=== PATIENT | female | born 1965 | race Caucasian/White ===

== ENCOUNTER 2022-07-03 12:17 | Day surgery (SDC) | payer OTHER ==
[~2022-07-03] VITALS: Ht 167.6 cm; Wt 63.3 kg
[2022-07-03] MEDS ORDERED: PRED20 PO (12:46)
[2022-07-03] MEDS ORDERED: TRAM50 PO (12:46)
--- NOTE | 2022-07-03 14:03 | NUR ---
07/03/22 1403 Tiffany Vanegas 1335 2 MG VERSED AND 50MCG FENTANYL IVP 1342 PATIENT TAKEN TO SDU AFTER PROCEDURE. ALERT, ORIENTED AND CONVERSIVE. NO S/S DISTRESS. VSS. REPORT GIVEN TO SDU RN.
== END 2022-07-03 14:12 | disposition home or self-care (01) ==
LOC: ORSCSDS 12:17
PROVIDERS: Anesthesiology
PROC: 3E0R33Z Introduction of Anti-inflammatory into Spinal Canal, Percutaneous Approach (ICD-10-PCS; principal; 2022-07-03 13:30)
DX: M50.123 Cervical disc disorder at C6-C7 level with radiculopathy (principal); Z79.899 Other long term (current) drug therapy
CPT/HCPCS: J1040; J2250; J3010

== ENCOUNTER 2022-08-06 08:20 | Emergency (ER) | payer OTHER ==
[~2022-08-06] VITALS: Ht 167.6 cm; Wt 63.5 kg
[~2022-08-06 08:20] MED LIST: CYCL10 PO; HYDR1TAB94 PO; LIDO700A20 TOP; PRED20 PO; TRAM50 PO
[2022-08-06] MEDS ORDERED: Percocet 5-3251 EACH PO (11:43)
== END 2022-08-06 11:30 | disposition home or self-care (01) ==
LOC: ER 08:20
DX: M54.2 Cervicalgia (principal); Z79.899 Other long term (current) drug therapy
CPT/HCPCS: 96372; 99283-25; A9270; J1170